=== PATIENT | female | born 1965 | race Caucasian/White ===

== ENCOUNTER 2018-02-11 23:51 | Emergency (ER) | payer OTHER ==
[~2018-02-11] VITALS: Ht 165.1 cm; Wt 60.0 kg
[2018-02-11 23:56] VITALS: BP 124/83
== END 2018-02-12 00:39 | disposition home or self-care (01) ==
LOC: ED 02-12 00:33
DX: Z20.9 Contact with and (suspected) exposure to unspecified communicable disease (principal); W46.1XXA Contact with contaminated hypodermic needle, initial encounter; Y93.89 Activity, other specified; Y92.89 Other specified places as the place of occurrence of the external cause; Y99.8 Other external cause status
CPT/HCPCS: 36415; 86705; 86706; 86803; 87340; 87806; 99283; G0475

== ENCOUNTER → 2018-06-13 | Outpatient (CLI) | payer OTHER ==
[2018-06-13 08:46] LABS: MICROSCOPIC NOT IND
[2018-06-13 08:51] LABS: CULTURE INDICATED? NO
[2018-06-13 08:53] LABS: BASOPHILS # (AUTO) 0.02 x10^3/uL (0-0.1); BASOPHILS % (AUTO) 0 % (0-1); EOSINOPHILS # (AUTO) 0.09 x10^3/uL (0-0.4); EOSINOPHILS % (AUTO) 2 % (1-7); LYMPHOCYTES # (AUTO) 1.77 x10^3/uL (1-3.4); LYMPHOCYTES % (AUTO) 31 % (22-44); MD NO; MEAN CORPUSCULAR HEMOGLOBIN 29.9 pg (27.0-34.8); MEAN CORPUSCULAR HGB CONC 32.9 g/dL (32.4-35.8); MEAN CORPUSCULAR VOLUME 90.9 fL (80-100); MEAN PLATELET VOLUME 7.2 fL (7.4-10.4); MONOCYTES # (AUTO) 0.36 x10^3/uL (0.2-0.8); MONOCYTES % (AUTO) 6 % (2-9); NEUTROPHILS # (AUTO) 3.46 x10^3/uL (1.8-6.8); NEUTROPHILS % (AUTO) 61 % (42-75); PLATELET COUNT 225 x10^3/uL (130-400); RED BLOOD COUNT 4.75 x10^6/uL (3.82-5.3); RED CELL DISTRIBUTION WIDTH 14.2 % (9.6-15.2)
[2018-06-13 09:02] LABS: ALANINE AMINOTRANSFERASE 30 U/L (12-78); ALBUMIN 3.7 g/dL (3.4-5.0); ANION GAP 6 mmol/L (5-15); CALCIUM 8.7 mg/dL (8.5-10.1); CHLORIDE 109 mmol/L (98-107)
[2018-06-13 09:11] LABS: ALKALINE PHOSPHATASE 67 U/L (45-117); BILIRUBIN,TOTAL 0.4 mg/dL (0.2-1.0); CHOL/HDL RATIO 2.9; CHOLESTEROL, TOTAL 195 mg/dL (140-239); CREATININE 0.84 mg/dL (0.55-1.02); FREE T4 (FREE THYROXINE) 0.92 ng/dL (0.76-1.46); HDL CHOL % 34 % (28-40); HDL CHOLESTEROL (DIRECT) 67 mg/dL (40-60); LDL CHOLESTEROL,CALCULATED 116 mg/dL (54-169); LDL/HDL RATIO 1.7 (0.5-3.0); THYROID STIMULATING HORMONE 0.845 mIU/L (0.358-3.740); TOTAL PROTEIN 6.8 g/dL (6.4-8.2); TRIGLYCERIDES 61 mg/dL (50-200); VLDL CHOLESTEROL 12 mg/dL (0-25)
[2018-06-13 10:55] LABS: HEMOGLOBIN A1C 5.3 % (4.2-6.3)
== END | disposition home or self-care (01) ==
LOC: LAB 08:25
PROVIDERS: ATTEND Obstetrics & Gynecology
DX: Z13.228 Encounter for screening for other metabolic disorders (principal); Z13.220 Encounter for screening for lipoid disorders; N92.0 Excessive and frequent menstruation with regular cycle; E03.9 Hypothyroidism, unspecified; E55.9 Vitamin D deficiency, unspecified; R31.9 Hematuria, unspecified; R73.09 Other abnormal glucose
CPT/HCPCS: 36415; 80053; 80061; 81003; 82306; 83036; 84439; 84443; 85025

== ENCOUNTER 2019-05-01 03:24 | Emergency (ER) | payer OTHER ==
[~2019-05-01] VITALS: Ht 165.1 cm; Wt 61.9 kg
[2019-05-01 03:30] VITALS: BP 145/83
--- NOTE | 2019-05-01 03:40 | NUR ---
Pt alert and sitting up on gurney. Pt reports right hand/wrist numbness that slightly raidates to her bicep. Pt also reports muscle not in her right shoulder and sleeping in an odd position. Pt denies and trauma, visions changes, speech changes. denies altered behavior. CMS intact to right hand. Pt in gown. Pt given blankets. Call light within reach.
[2019-05-01] MEDS ORDERED: doxy (03:42)
[2019-05-01] MEDS ORDERED: KETOROLAC 30 MG/1 ML ONE (03:55)
[2019-05-01] MEDS ORDERED: KETOROLAC 30 MG/1 ML IM ONE (04:00)
--- NOTE | 2019-05-01 04:15 | NUR ---
Splint applied and pt medicated per MAR.
--- NOTE | 2019-05-01 04:25 | NUR ---
Pt d/c'd to home care. Pt alert, oriented, and in NAD. Pt educated on prescription, OTC meds, follow-up, home care, and S/Sx to return. Pt VU. Pt ambulated out of ER.
== END 2019-05-01 04:27 | disposition home or self-care (01) ==
LOC: ED 04:10
DX: S64.21XA Injury of radial nerve at wrist and hand level of right arm, initial encounter (principal); X58.XXXA Exposure to other specified factors, initial encounter; Y93.89 Activity, other specified; Y92.89 Other specified places as the place of occurrence of the external cause; Y99.8 Other external cause status
CPT/HCPCS: 29125; 93005; 96372; 99283; J1885

== ENCOUNTER → 2019-08-22 | Outpatient (CLI) | payer OTHER ==
[~2019-08-22] MED LIST: doxy
== END | disposition home or self-care (01) ==
LOC: CFH 12:23
PROVIDERS: ATTEND Obstetrics & Gynecology
DX: Z12.31 Encounter for screening mammogram for malignant neoplasm of breast (principal); Z80.3 Family history of malignant neoplasm of breast
CPT/HCPCS: 77063; 77067